=== PATIENT | female | born 1955 | race Caucasian/White ===

== ENCOUNTER 2016-11-08 14:22 | Emergency (ER) | payer OTHER ==
--- NOTE | ~2016-11-08 | CR252 ---
[facility]. [facility] A Service of [facility] & [facility] / [facility] RADIOLOGY TEXT RESULTS PATIENT: JON ALEJANDRO LOCATION: SED : 55 UNIT #: [id number] AGE: [address]: ULYSSES DONALDSON SEX: F ORDER DR: [id number] [place] [id number] E MR#: [id number] Acc #: [id number] NAME: JON ALEJANDRO : 1955 SEX: F STUDY DATE/TIME: 11/08/2016 15:04 UNIT: SED ROOM: STUDY DESCRIPTION: CR Tibia and Fibula 2 Views Lt Attending Physician: Ulysses Donaldson A.P.R.N. Ordering Physician: Ulysses Donaldson A.P.R.N. Primary Care Physician: Ro Cramer M.D. MEDICAL IMAGING REPORT This report is preliminary unless electronic signature is present. EXAM Tib-fib on the left, 11/08/2016. INDICATIONS 61-year-old female with pain and swelling in the upper tib-fib for 2 weeks. The patient has run out of muscle relaxers. TECHNIQUE 2 views. COMPARISON No comparisons. FINDINGS There is no evidence of fracture, dislocation, or radiopaque foreign body. IMPRESSION Normal left tibia and fibula. Dictated by... Wilmer Villela M.D. THIS IS AN ELECTRONICALLY VERIFIED REPORT Wilmer Villela M.D. at 11/09/2016 2:22 PM CARYN/brittni TD: 11/09/2016 09:42 JOB #: [id number] MEDICAL IMAGING REPORT Page 1 of 1
[~2016-11-08 14:22] MED LIST: IBUPROFEN800 MG PO
== END 2016-11-08 15:45 | disposition home or self-care (01) ==
LOC: SED 14:22
DX: S80.12XA Contusion of left lower leg, initial encounter (principal); Z88.0 Allergy status to penicillin; Z91.013 Allergy to seafood; W16.212A Fall in (into) filled bathtub causing other injury, initial encounter; Y92.002 Bathroom of unspecified non-institutional (private) residence as the place of occurrence of the external cause; F41.9 Anxiety disorder, unspecified
CPT/HCPCS: 73590; 99283